=== PATIENT | female | born 1985 | race Asian ===

== ENCOUNTER 2017-10-16 07:39 | Inpatient (IN) | payer SELFPAY ==
[~2017-10-16] VITALS: Ht 165.1 cm; Wt 59.9 kg
[2017-10-16 08:00] VITALS: BP 138/78
--- NOTE | 2017-10-16 08:16 | NUR ---
PATIENT HAS BEEN SCREENED AND CATEGORIZED LOW NUTRITION RISK. PATIENT WILL BE SEEN WITHIN 7 DAYS OF ADMISSION. 10/22/[address]
[2017-10-16] MEDS ORDERED: OXYTOCIN 20 UNITS in LACTATED RINGERS 1,000 ML IV SCH (08:33)
[2017-10-16] MEDS ORDERED: METHYLERGONOVINE 0.2 MG/ML AMP IM PRN (08:35)
[2017-10-16] MEDS ORDERED: NALBUPHINE 10 MG/ML AMP IVP PRN (08:35)
[2017-10-16] MEDS ORDERED: PROMETHAZINE 25 MG/ML VIAL IVP PRN (08:35)
[2017-10-16] MEDS ORDERED: OXYTOCIN 10 UNITS/ML VIAL IM SCH (08:35)
[2017-10-16 09:15] LABS: HEMATOCRIT 36.2 % (36-48); HEMOGLOBIN 12.5 g/dL (12.0-16.0); MEAN CORPUSCULAR VOLUME 86.7 fL (80-94); RED BLOOD CELL COUNT(AUTO) 4.18 MIL/uL (4.20-5.40); WHITE BLOOD COUNT (AUTO) 8.9 K/uL (4.8-10.8)
[2017-10-16] MEDS: LACTATED RINGERS 1,000 ML IV SCH ×3 (09:15→21:55)
[2017-10-16 09:16] LABS: BASOPHILS % (AUTO) 0.1 % (0.0-2.0); EOSINOPHILS % (AUTO) 0.4 % (0.0-4.0); LYMPHOCYTES % (AUTO) 13.3 % (20.5-51.1); MEAN CORPUSCULAR HEMOGLOBIN 30 pg (27-31); MEAN CORPUSCULAR HGB CONC 35 g/dL (33-37); MONOCYTES % (AUTO) 6.2 % (1.7-9.3); PLATELET COUNT (AUTO) 177 K/uL (140-450); RED CELL DISTRIBUTION WIDTH 13.8 % (11.6-13.7)
[2017-10-16 09:35] LABS: APPEARANCE,URINE CLEAR (CLEAR); BILIRUBIN,URINE NEGATIVE (NEGATIVE); BLOOD, URINE 1+ (NEGATIVE); COLOR,URINE YELLOW (YELLOW); LEUKOCYTE ESTERASE ,URINE NEGATIVE (NEGATIVE); NITRITE, URINE NEGATIVE (NEGATIVE); UGLUCOSE NEGATIVE (NEGATIVE)
[2017-10-16 09:49] LABS: ALBUMIN 2.8 g/dL (3.4-5.0); ANION GAP 15.8 (8-16); CREATININE 0.6 mg/dL (0.6-1.3); POTASSIUM 3.8 mmol/L (3.5-5.1); TOTAL BILIRUBIN 0.3 mg/dL (0.0-1.0)
[2017-10-16 10:38] LABS: RBC,URINE 0-5 (RARE) /HPF (0-5); WBC,URINE 0-5 (RARE) /HPF (0-5)
[2017-10-16 13:30] LABS: RAPID PLASMA REAGIN NON-REACTIVE (Non Reactiv)
[2017-10-16] MEDS ORDERED: BUPIVACAINE 0.125%/NS PREMIX 250 ML ONE (14:45)
[2017-10-17] MEDS ORDERED: OXYTOCIN 10 UNITS/ML VIAL ONE (00:25)
[2017-10-17] MEDS ORDERED: TEMAZEPAM 15 MG CAP PO PRN (01:15)
[2017-10-17] MEDS ORDERED: HYDROcodone/APAP 5/325 MG 1 TAB TAB PO PRN (01:15)
[2017-10-17] MEDS ORDERED: BENZOCAINE/MENTHOL 20%-0.5% 60 GM CAN TP PRN (01:15)
[2017-10-17] MEDS ORDERED: METHYLERGONOVINE 0.2 MG/ML AMP IM PRN (01:15)
[2017-10-17] MEDS ORDERED: OXYTOCIN 10 UNITS/ML VIAL IM PRN (01:15)
[2017-10-17] MEDS ORDERED: IBUPROFEN 800 MG TAB PO PRN (01:15)
[2017-10-17] MEDS ORDERED: oxyCODONE/APAP 5/325 MG 1 TAB TAB PO PRN (01:15)
[2017-10-17] MEDS ORDERED: MEASLES, MUMPS, AND RUBELLA 1 VIAL SQVAC PRN (01:15)
[2017-10-17] MEDS ORDERED: BETHANECHOL 25 MG TAB PO PRN (07:20)
[2017-10-17] MEDS: IBUPROFEN 800 MG TAB PO PRN ×2 (10:13→20:43)
[2017-10-17] MEDS ORDERED: DOCUSATE SOD/SENNA 50/8.6 MG 1 TAB PO SCH (21:00)
[2017-10-18 07:48] LABS: HEMATOCRIT 31.1 % (36-48); HEMOGLOBIN 10.6 g/dL (12.0-16.0)
== END 2017-10-18 14:05 | disposition home or self-care (01) | DRG 775 ==
LOC: MLD 07:39 → MFCC 10-17 04:30
PROVIDERS: ADMIT Obstetrics & Gynecology; ATTEND Obstetrics & Gynecology
PROC: 10E0XZZ Delivery of Products of Conception, External Approach (ICD-10-PCS; principal; 2017-10-17)
PROC: 0KQM0ZZ Repair Perineum Muscle, Open Approach (ICD-10-PCS; 2017-10-17)
PROC: 10907ZC Drainage of Amniotic Fluid, Therapeutic from Products of Conception, Via Natural or Artificial Opening (ICD-10-PCS; 2017-10-17)
PROC: 3E0R3BZ Introduction of Anesthetic Agent into Spinal Canal, Percutaneous Approach (ICD-10-PCS; 2017-10-17)
PROC: 00HU33Z Insertion of Infusion Device into Spinal Canal, Percutaneous Approach (ICD-10-PCS; 2017-10-17)
DX: O70.1 Second degree perineal laceration during delivery (principal); Z37.0 Single live birth; Z3A.37 37 weeks gestation of pregnancy
CPT/HCPCS: 36415; 51702; 80053; 81001; 85018; 85025; 86592; 86886; 86900; 86901; C1758; J2590; J3490; J7120